=== PATIENT | male | born 1980 | race Caucasian/White ===

== ENCOUNTER 2019-11-20 20:11 | Emergency (ER) | payer OTHER ==
[~2019-11-20] VITALS: Ht 180.3 cm; Wt 68.9 kg
[2019-11-20] MEDS ORDERED: ATIVAN ONE (20:12)
[2019-11-20] MEDS ORDERED: SUBLIMAZE ONE (20:15)
[2019-11-20 20:18] VITALS: BP 149/92
[2019-11-20] MEDS ORDERED: SUBLIMAZE IV STA (20:24)
[2019-11-20] MEDS ORDERED: NS 1000ML 1,000 ML IV STA (20:24)
[2019-11-20] MEDS ORDERED: ATIVAN IV STA (20:24)
--- NOTE | 2019-11-20 20:28 | ER.PDOC ---
General Chief Complaint: General Complaint Stated Complaint: DIABETIC Time seen by MD: 08:20 Source: patient, EMS Exam Limitations: intoxication History of Present Illness Initial Comments Patient c/o altered MS and epigastric pain. His is a known insulin dependent diabetic and has not been taking his insulin. He also has a history of pancreatitis. Timing/Duration: 1/2 hour Severity/Quality: moderate, severe, sharpness, stabbing (epigastric pain) Radiation: no radiation Associated Symptoms: denies symptoms Exacerbated by: food Relieved By: nothing Allergies: Coded Allergies: No Known Allergies (Unverified , 11/20/19) Vital Signs First Vital Signs Date Time Temp Pulse Resp B/P (MAP) Pulse Ox O2 Delivery O2 Flow Rate FiO2 11/20/19 20:18 98.5 129 20 149/92 (111) 95 Room Air Last Vital Signs Date Time Temp Pulse Resp B/P (MAP) Pulse Ox O2 Delivery O2 Flow Rate FiO2 11/20/19 20:18 98.5 129 20 95 11/20/19 20:18 149/92 (111) Room Air Past Medical History Medical History: asthma, diabetes, hypertension, other (pancreatitis) Surgical History: no surgical history Family History Significant Family History: no pertinent family hx Social History Smoking: cigarettes Alcohol Use: heavy Drug Use: none Constitutional: no symptoms reported EENTM: no symptoms reported Respiratory: no symptoms reported Cardiovascular: no symptoms reported Gastrointestinal: see HPI, abdominal pain (epigastric) Musculoskeletal: no symptoms reported Skin: no symptoms reported Psychiatric/Neurological: other (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 mental status (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)) Endocrine: see HPI (has not been taking his insulin) Physical Exam General Appearance: No Apparent Distress HEENT: PERRL/EOMI Neck: Non-Tender Respiratory: chest non-tender, lungs clear, normal breath sounds, no respiratory distress, no accessory muscle use Cardiovascular: Regular Rate, Rhythm Gastrointestinal: No Pulsatile Mass, Hypoactive bowel sounds, Soft, Tenderness (epigastric TTP without rebound) Back: Normal Inspection, No CVA Tenderness, No Vertebral Tenderness Extremities: Normal Range of Motion, Non-Tender, Normal Inspection, No Pedal Edema, No Calf Tenderness Neurologic/Psychiatric: No Motor/Sensory Deficits, Alert, Normal Mood/Affect, Oriented x 3 Skin: Normal Color, Warm/Dry Results/Orders Results/Orders Orders - NITO SANCHEZ DO Cbc With Auto Diff (11/20/19:24) Comprehensive Metabolic Panel (11/20/19:24) Amylase (11/20/19:24) Lipase (11/20/19:24) Helicobacter Pylori (11/20/19:24) PT (11/20/19:24) Partial Thromboplastin Time. (11/20/19 20:24) Urinalysis (11/20/19:24) Saline Lock (11/20/19:24) Blood Glucose Assessment (11/20/19:24) Acetone,Serum (Ml) (11/20/19 20:24) Venous Blood Gas (11/20/19:24) 0.9 % Sodium Chloride (Ns 1000ml) (11/20/19:24) Fentanyl Citrate/Pf (Sublimaze) (11/20/19:24) Lorazepam (Ativan) (11/20/19 20:24) Alcohol(Ml) (11/20/19:24) Drug Scrn Med W Confirmation (11/20/19:24) Ammonia (11/20/19 20:28) Ct Head Wo Contrast (11/20/19 20:29) Bedside Glucose (11/20/19 20:25) Morphine Sulfate (Morphine Sulfate) (11/20/19 20:58) Morphine Sulfate (Morphine Sulfate) (11/20/19 20:58) Insulin Regular, Human (Humulin R) (11/20/19 21:34) Insulin Regular, Human (Humulin R) (11/20/19 21:34) 0.9 % Sodium Chloride (Ns 1000ml) (11/20/19 21:35) Insulin Regular, Human (Humulin R) (11/20/19 21:40) Vital Signs Date Time Temp Pulse Resp B/P (MAP) Pulse Ox O2 Delivery O2 Flow Rate FiO2 11/20/19 20:18 98.5 129 20 95 11/20/19 20:18 98.5 129 20 11/20/19 20:18 98.5 129 20 149/92 (111) 95 Room Air Administered Medications Medications (Trade) Dose Ordered Sig/Emily Route PRN Reason Start Time Stop Time Status Last Admin Dose Admin Fentanyl Citrate (Sublimaze) 100 mcg STAT STAT IV 11/20/19 20:24 11/20/19 20:28 DC 11/20/19 20:40 100 MCG Insulin Human Regular (Humulin R) 5 unit STAT STAT IV 11/20/19 21:34 11/20/19 21:36 DC 11/20/19 21:47 5 UNIT Insulin Human Regular (Humulin R) 10 unit STAT STAT SQ 11/20/19 21:34 11/20/19 21:36 DC 11/20/19 21:47 10 UNIT Lorazepam (Ativan) 1 mg STAT STAT IV 11/20/19 20:24 11/20/19 20:28 DC 11/20/19 20:39 1 MG Morphine Sulfate (Morphine Sulfate) 4 mg STAT STAT IV 11/20/19 20:58 11/20/19 20:59 DC 11/20/19 21:01 4 MG Sodium Chloride 1,000 ml @ 1,200 mls/hr Q50M STAT IV 11/20/19 20:24 11/20/19 21:13 DC 11/20/19 21:41 1,200 MLS/HR Laboratory Tests Test 11/20/19 20:24 11/20/19 20:25 11/20/19 20:43 O2 Saturation 97.7 (70-75) H Venous Blood pH 7.420 (7.32-7.43) Venous Blood pCO2 at Patient Temp 24.4 MMHG (41-51) L POC Venous pO2 107.7 MMHG (30-50) H Venous Blood Base Excess -6.4 Venous Blood Temperature 37.0 Carboxyhemoglobin 13.8 % (0.0-3.9) *H Methemoglobin 0.1 % (0.00-5.0) Total Carbon Dioxide 16.5 mmol/L (23-27) L Bicarbonate 15.8 mmol/L (24-28) L POC Glucose 357 (70 - 110) H White Blood Count 8.4 10^3/uL (4.5-11.0) Red Blood Count 4.21 10^6/uL (4.50-5.90) L Hemoglobin 14.1 g/dL (13.9-16.3) Hematocrit 40.3 % (37.0-53.0) Mean Corpuscular Volume 95.7 fL (78-100) Mean Corpuscular Hemoglobin 33.5 pg (26-34) Mean Corpuscular Hemoglobin Concent 35.0 g/dL (33-36.5) Red Cell Distribution Width 14.5 % (11.5-14.5) Platelet Count 201 10^3/uL (150-400) Mean Platelet Volume 9.2 fL (7.8-11.0) Neutrophils (%) (Auto) 46.5 % (41.0-85.0) Lymphocytes (%) (Auto) 41.5 % (24.0-44.0) Monocytes (%) (Auto) 11.0 % (5.0-12.0) Neutrophils # (Auto) 3.9 10^3/uL (1.8-7.7) Lymphocytes # (Auto) 3.47 10^3/uL1 (1.0-4.8) Monocytes # (Auto) 0.9 10^3/uL (0.3-0.8) H Absolute Immature Granulocyte (auto 0.02 10^3 u/L (0-2) Absolute Eosinophils (auto) 0.1 10^3/uL (0.0-0.2) Immature Granulocytes % 0.20 % (0.00-0.50) Eosinophils % 0.6 % (0.0-5.0) Basophils % 0.2 % (0.0-0.2) Basophils # 0.0 10^3/uL (0.0-0.1) Prothrombin Time 9.7 SEC (9.3-11.3) Prothrombin Time INR (Non-Therap) 1.0 Activated Partial Thromboplast Time 22.7 SEC (24.67-30.72) Urine Collection Type CCMS Urine Color YELLOW (YELLOW) Urine Appearance CLEAR (CLEAR) Urine Bilirubin NEGATIVE MG/DL (NEGATIVE) Urine Ketones NEGATIVE (NEGATIVE) Urine Specific [place] <=1.005 (1.005-1.035) Urine pH 6.0 (5.0-6.0) Urine Protein NEGATIVE (NEGATIVE) Urine Urobilinogen NORMAL (NEGATIVE) Urine Nitrate NEGATIVE (NEGATAIVE) Urine Leukocyte Esterase NEGATIVE (NEGATIVE) Urine Blood NEGATIVE (NEGATIVE) Urine Glucose 500 (NEGATIVE) H Sodium Level 137 mmol/L (132-145) Potassium Level 3.8 mmol/L (3.6-5.2) Chloride Level 101.0 mmol/L (96-109) Carbon Dioxide Level 18.5 mmol/L (20.0-32) L Anion Gap 21.3 Blood Urea Nitrogen 3 mg/dL (7-18) L Creatinine 1.00 mg/dL (0.59-1.40) Estimated GFR () 101.2 (>/=60) Est GFR (CKD-EPI)(Non-Afr [place]) 83.6 (>/=60) BUN/Creatinine Ratio 3.0 Glucose Level 365 mg/dL (70-110) H Calcium Level 8.7 mg/dL (8.4-10.5) Total Bilirubin 0.2 mg/dL (0.2-1.0) Aspartate Amino Transferase (AST) 23 U/L (0-35) Alanine Aminotransferase (ALT) 30 U/L (12-78) Alkaline Phosphatase 136 U/L (50-136) Ammonia 17 umol/L (11-35) Total Protein 7.9 g/dL (6.4-8.2) Albumin 3.9 g/dL (3.4-5.0) Globulin 4.0 Amylase Level 31 U/L (25-115) Lipase 33 U/L (114-286) L Urine Opiates Screen NEGATIVE (c/o300ng/mL) Urine Methadone Screen NEGATIVE (c/o300ng/mL) Urine Barbiturates Screen NEGATIVE (c/o200ng/mL) Urine Phencyclidine Screen NEGATIVE (c/o 25ng/mL) Ur Amphetamine/Methamphetamine NEGATIVE (oq8305rz/mL) Urine MDMA Screen (Ecstasy) NEGATIVE (c/o300ng/mL) Urine Benzodiazepines Screen NEGATIVE (c/o200ng/mL) Urine Cocaine Metabolite Screen NEGATIVE (c/o300ng/mL) Ur Tetrahydrocannabinol (THC) Scrn NEGATIVE (c/o 50ng/mL) Serum Alcohol 292 mg/dL (0-50) H Acetone, Semi-Quantitative NEGATIVE Helicobacter pylori Screen POSITIVE (NEGATIVE) Progress Progress no evidence of DKA or pancreatitis; ETOH is 292 explaining patient's altered MS; CT head normal EKG/XRAY/CT/US CT Comments: normal Departure Time of Disposition: 22:10 Disposition: 01 HOME, SELF-CARE Impression: Primary Impression: H. pylori infection Additional Impressions: Uncontrolled diabetes mellitus Alcohol intoxication Condition: Improved Patient Instructions: 2400 Calorie Diet for Diabetes Meal Planning, Alcoholic Gastritis-Brief, Diabetes Meal Planning Guide, Diabetes and Standards of Medical Care Referrals: PCP,UNKNOWN (PCP) PRIMARY CARE PROVIDER Additional Instructions: Take antibiotics as prescribed until all gone. Do not drink alcohol--it will aggravate pancreatitis and gastritis. Tylenol per package directions for pain. Establish care with a PCP to manage diabetes. Duration or Time Spent with Pa: 15 Problem Qualifiers Additional Impressions: Uncontrolled diabetes mellitus Diabetes mellitus type: type 1 Glycemic state: with hyperglycemia Qualified Codes: E10.65 - Type 1 diabetes mellitus with hyperglycemia Alcohol intoxication Complication of substance-induced condition: uncomplicated Qualified Codes: F10.920 - Alcohol use, unspecified with intoxication, uncomplicated NITO SANCHEZ DO Nov 20, 2019 20:28
--- NOTE | 2019-11-20 20:39 | NUR ---
CT PT TO CT WITH [facility] VIA STRETCHER AT THIS TIME.
--- NOTE | 2019-11-20 20:47 | NUR ---
ROOM PT BACK TO ROOM FROM CT AT THIS TIME.
[2019-11-20 20:48] LABS: BASOPHIL % 0.2 % (0.0-0.2); EOSINOPHIL # 0.1 10^3/uL (0.0-0.2); EOSINOPHIL % 0.6 % (0.0-5.0); LYMPHOCYTES # 3.47 10^3/uL1 (1.0-4.8); LYMPHOCYTES % 41.5 % (24.0-44.0); MEAN CORP HGB 33.5 pg (26-34); MONOCYTES # 0.9 10^3/uL (0.3-0.8); NEUTROPHIL # 3.9 10^3/uL (1.8-7.7); NEUTROPHILS % 46.5 % (41.0-85.0); PLATELET COUNT 201 10^3/uL (150-400); RED CELL DISTRIBUTION WIDTH 14.5 % (11.5-14.5)
--- NOTE | 2019-11-20 20:52 | DIREP ---
PROCEDURE:CT HEAD OR BRAIN W/O CONTRAST COMPARISON:[facility], CT, CT HEAD BRAIN W/O CONTRAST, 07/27/2019, 08:42 PM. INDICATIONS:altered mental status TECHNIQUE:CT images were created without intravenous contrast. FINDINGS: VENTRICLES:The ventricles are normal in size and configuration. CEREBRUM:Normal cerebral morphology with appropriate adler white matter differentiation. CEREBELLUM:Negative. BRAINSTEM:Negative. BASAL CISTERNS:Negative. HEMORRHAGE:No MASS LESION:No ACUTE INFARCT:No SKULL:Normal. SINUSES:Normal. OTHER:None CONCLUSION:Normal examination. Dictated by: Martín Poole M.D. on 11/20/2019 at 08:50 PM
[2019-11-20] MEDS ORDERED: MORPHINE SULFATE IV STA (20:58)
[2019-11-20] MEDS ORDERED: MORPHINE SULFATE ONE (20:58)
[2019-11-20 21:08] LABS: CALCIUM 8.7 mg/dL (8.4-10.5); CARBON DIOXIDE 18.5 mmol/L (20.0-32)
[2019-11-20 21:09] LABS: APPEARANCE,URINE CLEAR (CLEAR); BILIRUBIN,URINE NEGATIVE (NEGATIVE); UA COLOR YELLOW (YELLOW)
[2019-11-20 21:10] LABS: UROBILINOGEN,URINE NORMAL (NEGATIVE)
--- NOTE | 2019-11-20 21:21 | NUR ---
Critical alcohol level of [address] Ledesma.
[2019-11-20] MEDS ORDERED: HUMULIN R SQ STA (21:34)
[2019-11-20] MEDS ORDERED: HUMULIN R IV STA (21:34)
[2019-11-20] MEDS ORDERED: NS 1000ML 1,000 ML ONE (21:35)
[2019-11-20] MEDS ORDERED: HUMULIN R ONE (21:40)
[2019-11-20 22:31] VITALS: BP 103/56
== END 2019-11-20 23:27 | disposition home or self-care (01) ==
LOC: EDBD 20:11 → ER 20:11
DX: E11.65 Type 2 diabetes mellitus with hyperglycemia (principal); F10.129 Alcohol abuse with intoxication, unspecified; B96.81 Helicobacter pylori [H. pylori] as the cause of diseases classified elsewhere; I10 Essential (primary) hypertension; J45.909 Unspecified asthma, uncomplicated; R41.82 Altered mental status, unspecified; F17.210 Nicotine dependence, cigarettes, uncomplicated; Z79.4 Long term (current) use of insulin; Z79.899 Other long term (current) drug therapy; Y90.8 Blood alcohol level of 240 mg/100 ml or more
CPT/HCPCS: 36415; 70450; 80053; 80307; 80320; 81002; 82010; 82140; 82150; 82803; 82948; 83690; 85025; 85610; 85730; 86677; 96361; 96372; 96374; 96375; 99284; J1815; J2060; J2270; J3010; J7030

== ENCOUNTER 2019-11-23 22:20 | Emergency (ER) | payer OTHER ==
[~2019-11-23] VITALS: Ht 180.3 cm; Wt 68.0 kg
[2019-11-23 22:22] VITALS: BP 143/99
--- NOTE | 2019-11-23 22:33 | ER.PDOC ---
General Chief Complaint: Requesting Medical Care Stated Complaint: ABD PAIN Time seen by MD: 22:18 Source: patient Exam Limitations: no limitations History of Present Illness Initial Comments pain in upper abdomen starting at 630 am today, has hx of pancreatitis and h pylori, he was seen here several days ago for similar and was dx with h pylori and given rx which he did not fill. no vomiting or diarrhea patient is diabetic and did not take insulin for 3 days but took today, patient drinks one half gallon of hard liquor per day per patient. Timing/Duration: other Severity/Quality: moderate Radiation: epigastric Associated Symptoms: denies symptoms Allergies: Coded Allergies: No Known Allergies (Unverified , 11/20/19) Vital Signs First Vital Signs Date Time Temp Pulse Resp B/P (MAP) Pulse Ox O2 Delivery O2 Flow Rate FiO2 11/23/19 22:22 98.3 113 16 143/99 (114) 93 Room Air Last Vital Signs Date Time Temp Pulse Resp B/P (MAP) Pulse Ox O2 Delivery O2 Flow Rate FiO2 11/23/19 22:22 98.3 113 16 93 11/23/19 22:22 143/99 (114) Room Air Past Medical History Medical History: asthma, diabetes, hypertension, other Surgical History: no surgical history Social History Drug Use: none Constitutional: denies chills, denies fever EENTM: denies eye pain Respiratory: denies cough Cardiovascular: denies chest pain, denies palpitations, denies syncope Gastrointestinal: abdominal pain; denies diarrhea Skin: denies rash Psychiatric/Neurological: denies headache Endocrine: denies increased urine Hematologic/Lymphatic: denies blood clots Physical Exam General Appearance: No Apparent Distress, WD/WN HEENT: PERRL/EOMI, Normal ENT Inspection Neck: Non-Tender Respiratory: chest non-tender, lungs clear Cardiovascular: Regular Rate, Rhythm Gastrointestinal: Soft, Tenderness Back: Normal Inspection Extremities: Normal Range of Motion, Non-Tender Neurologic/Psychiatric: letter of credit clerk II-XII NML as Tested, No Motor/Sensory Deficits, Alert, Normal Mood/Affect Skin: Normal Color Comments patient does not appear intoxicated at time of visit, no slurring of speech. Results/Orders Results/Orders Orders - DOM BERRIOS MD Cbc With Auto Diff (11/23/19 22:28) Comprehensive Metabolic Panel (11/23/19 22:28) Amylase (11/23/19 22:28) Lipase (11/23/19 22:28) Helicobacter Pylori (11/23/19 22:28) PT (11/23/19 22:28) Ct Abd/Pel With Iv Contrast (11/23/19 22:28) Partial Thromboplastin Time. (11/23/19 22:28) Urinalysis (11/23/19 22:28) Saline Lock (11/23/19 22:) Ekg-Routine (11/23/19 22:29) Troponin I (11/23/19:) Vital Signs Date Time Temp Pulse Resp B/P (MAP) Pulse Ox O2 Delivery O2 Flow Rate FiO2 11/23/19 22: 98.3 113 16 93 11/23/19: 98.3 113 16 11/23/19 22: 98.3 113 16 143/99 (114) 93 Room Air Laboratory Tests Test 11/23/19 22:55 11/23/19 23:00 White Blood Count 11.0 10^3/uL (4.5-11.0) Red Blood Count 4.59 10^6/uL (4.50-5.90) Hemoglobin 15.2 g/dL (13.9-16.3) Hematocrit 43.3 % (37.0-53.0) Mean Corpuscular Volume 94.3 fL (78-100) Mean Corpuscular Hemoglobin 33.1 pg (26-34) Mean Corpuscular Hemoglobin Concent 35.1 g/dL (33-36.5) Red Cell Distribution Width 14.5 % (11.5-14.5) Platelet Count 177 10^3/uL (150-400) Mean Platelet Volume 9.0 fL (7.8-11.0) Neutrophils (%) (Auto) 50.6 % (41.0-85.0) Lymphocytes (%) (Auto) 38.8 % (24.0-44.0) Monocytes (%) (Auto) 9.1 % (5.0-12.0) Neutrophils # (Auto) 5.6 10^3/uL (1.8-7.7) Lymphocytes # (Auto) 4.28 10^3/uL1 (1.0-4.8) Monocytes # (Auto) 1.0 10^3/uL (0.3-0.8) H Absolute Immature Granulocyte (auto 0.05 10^3 u/L (0-2) Absolute Eosinophils (auto) 0.1 10^3/uL (0.0-0.2) Immature Granulocytes % 0.50 % (0.00-0.50) Eosinophils % 0.8 % (0.0-5.0) Basophils % 0.2 % (0.0-0.2) Basophils # 0.0 10^3/uL (0.0-0.1) Sodium Level 135 mmol/L (132-145) Potassium Level 3.5 mmol/L (3.6-5.2) L Chloride Level 97.0 mmol/L (96-109) Carbon Dioxide Level 20.2 mmol/L (20.0-32) Anion Gap 21.3 Blood Urea Nitrogen 4 mg/dL (7-18) L Creatinine 0.84 mg/dL (0.59-1.40) Estimated GFR () 123.7 (>/=60) Est GFR (CKD-EPI)(Non-Afr [place]an) 102.3 (>/=60) BUN/Creatinine Ratio 4.0 Glucose Level 190 mg/dL (70-110) H Calcium Level 8.9 mg/dL (8.4-10.5) Total Bilirubin 0.2 mg/dL (0.2-1.0) Aspartate Amino Transferase (AST) 25 U/L (0-35) Alanine Aminotransferase (ALT) 25 U/L (12-78) Alkaline Phosphatase 116 U/L (50-136) Troponin I < 0.02 ng/mL (0.00-0.05) Total Protein 8.3 g/dL (6.4-8.2) H Albumin 3.8 g/dL (3.4-5.0) Globulin 4.5 Amylase Level 35 U/L (25-115) Lipase 34 U/L (114-286) L Helicobacter pylori Screen POSITIVE (NEGATIVE) Urine Collection Type VOID Urine Color YELLOW (YELLOW) Urine Appearance CLEAR (CLEAR) Urine Bilirubin NEGATIVE MG/DL (NEGATIVE) Urine Ketones NEGATIVE (NEGATIVE) Urine Specific [place] <1.005 (1.005-1.035) Urine pH 6.0 (5.0-6.0) Urine Protein NEGATIVE (NEGATIVE) Urine Urobilinogen NORMAL (NEGATIVE) Urine Nitrate NEGATIVE (NEGATAIVE) Urine Leukocyte Esterase NEGATIVE (NEGATIVE) Urine Blood NEGATIVE (NEGATIVE) Urine Glucose 100 (NEGATIVE) H Progress Progress patient has sober adult in room to take him home. Departure Time of Disposition: 23:33 Disposition: 01 HOME, SELF-CARE Impression: Primary Impression: Abdominal pain Additional Impressions: Hyperglycemia H. pylori infection Alcohol abuse Condition: Stable Patient Instructions: Abdominal Pain, Helicobacter Pylori Antibodies Test, Hyperglycemia Referrals: PCP,UNKNOWN (PCP) PRIMARY CARE PROVIDER LI DELUNA MD Additional Instructions: return for any worsening symptoms, call detox facility of your choice in am. Duration or Time Spent with Pa: 15 Problem Qualifiers DOM BERRIOS MD Nov 23, 2019 22:33
--- NOTE | 2019-11-23 22:34 | NUR ---
EKG RT IN ROOM FOR EKG
--- NOTE | 2019-11-23 22:38 | PCM.EKG ---
[facility] Test Date: 2019-11-23 Test Time: 22:23:27 Pat Name: VERONICA WHITE Department: Room: Gender: M [employer]: [place] : 1980 Requested By: HUBERT PADILLA Order Number: [id number] Reading MD: Hubert Padilla Measurements Intervals [place] Rate: 108 P: 57 AR: 129 QRS: 70 QRSD: 93 T: -17 QT: 337 QTc: 452 Interpretive Statements Sinus tachycardia No previous ECG available for comparison Electronically Signed On 11-23-2019 22:39:45 CDT by Hubert Padilla Please click the below link to view image of tracing.
[2019-11-23 22:55] LABS: BASOPHIL % 0.2 % (0.0-0.2); EOSINOPHIL # 0.1 10^3/uL (0.0-0.2); EOSINOPHIL % 0.8 % (0.0-5.0); LYMPHOCYTES # 4.28 10^3/uL1 (1.0-4.8); LYMPHOCYTES % 38.8 % (24.0-44.0); MEAN CORP HGB 33.1 pg (26-34); MONOCYTES % 9.1 % (5.0-12.0); NEUTROPHIL # 5.6 10^3/uL (1.8-7.7); NEUTROPHILS % 50.6 % (41.0-85.0); PLATELET COUNT 177 10^3/uL (150-400); RED CELL DISTRIBUTION WIDTH 14.5 % (11.5-14.5)
[2019-11-23 23:10] LABS: CALCIUM 8.9 mg/dL (8.4-10.5); CARBON DIOXIDE 20.2 mmol/L (20.0-32)
--- NOTE | 2019-11-23 23:16 | NUR ---
BACK FROM CT PATIENT BACK FROM CT, GF AT BEDSIDE. NO NEEDS VOICED BY PATIENT OR GF
[2019-11-23 23:18] LABS: APPEARANCE,URINE CLEAR (CLEAR); UA COLOR YELLOW (YELLOW)
[2019-11-23 23:19] LABS: BILIRUBIN,URINE NEGATIVE (NEGATIVE)
[2019-11-23 23:20] LABS: UROBILINOGEN,URINE NORMAL (NEGATIVE)
--- NOTE | 2019-11-23 23:30 | DIREP ---
PROCEDURE:CT ABDOMEN/PELVIS W/ CONTRAST COMPARISON:[facility], CT, CT ABD/PELVIS W/O, 07/01/2019, 08:28 AM. [facility], CT, CT ABD/PELVIS W/O, 07/27/2019, 08:48 PM. INDICATIONS:upper abd pain with hx pancreatitis TECHNIQUE:Axial images were created through the abdomen and pelvis with non-ionic intravenous contrast material. No oral contrast was administered. Sagittal and coronal reconstructions were performed from source images. FINDINGS: LUNG BASES:Normal. No visible pulmonary or pleural disease. LIVER:Diffusely diminished hepatic attenuation consistent with hepatic steatosis. BILIARY:Normal. No visible dilatation or calcification. PANCREAS:Peripherally calcified fluid collection in keeping with chronic pseudocyst, similar to previous examination. No evidence of pancreatic necrosis. Stranding to indicate acute pancreatitis is not seen SPLEEN:Normal. No enlargement or focal lesion. ADRENALS:Normal. No mass or enlargement. URINARY TRACT:Normal. No focal lesions or hydronephrosis. AORTA/VASCULAR:Normal. No aneurysm. RETROPERITONEUM:Normal. No mass or adenopathy. BOWEL/MESENTERY:The appendix is visualized and appears normal. There is no intestinal obstruction, free fluid, free air or mesenteric inflammatory changes. ABDOMINAL WALL:Normal. No mass or hernia. PELVIC ORGANS:Normal. No visible mass. Pelvic organs appropriate for patient age. BONES:Normal for age. No bony lesion or acute fracture. OTHER:Negative. CONCLUSION:Stable chronic pancreatic pseudocyst. No acute superimposed process. Dictated by: Chris Elliott MD on 11/23/2019 at 11:25 PM
--- NOTE | 2019-11-23 23:40 | NUR ---
IV DC'D TIP INTACT, NO BLEEDING
[2019-11-23 23:45] VITALS: BP 127/81
== END 2019-11-23 23:45 | disposition home or self-care (01) ==
LOC: ER 22:20 → EDBD 22:20 → ER 23:45
DX: E11.65 Type 2 diabetes mellitus with hyperglycemia (principal); B96.81 Helicobacter pylori [H. pylori] as the cause of diseases classified elsewhere; F10.10 Alcohol abuse, uncomplicated; I10 Essential (primary) hypertension; J45.909 Unspecified asthma, uncomplicated
CPT/HCPCS: 36415; 74177; 80053; 81002; 82150; 83690; 84484; 85025; 85610; 85730; 86677; 93005; 99285; Q9965

== ENCOUNTER 2020-09-29 17:40 | Emergency (ER) | payer OTHER ==
[2020-09-29 17:40] VITALS: BP 157/89
[2020-09-29] MEDS ORDERED: TORADOL IV STA (17:51)
[2020-09-29] MEDS ORDERED: NS 1000ML 1,000 ML IV ONE (18:00)
[2020-09-29] MEDS ORDERED: TORADOL ONE (18:08)
[2020-09-29] MEDS ORDERED: ZOFRAN ONE (18:08)
--- NOTE | 2020-09-29 18:13 | ER.PDOC ---
General Chief Complaint: Requesting Medical Care Stated Complaint: ABDOMINAL PAIN Time seen by MD: 18:00 Source: patient Exam Limitations: no limitations History of Present Illness Initial Comments 39-year-old male with history of pancreatitis and alcoholism as well as type 1 diabetes presents to the emergency department with complaint of epigastric pain nausea vomiting and diarrhea since yesterday. He denies any fevers. Patient states he has had close to 2/5 of whiskey today and he also smokes 2 packs/day. Allergies: Coded Allergies: No Known Allergies (Unverified , 11/20/19) Vital Signs First Vital Signs Date Time Temp Pulse Resp B/P (MAP) Pulse Ox O2 Delivery O2 Flow Rate FiO2 09/29/20 17:40 97.8 127 18 95 09/29/20 17:40 157/89 (111) Room Air Last Vital Signs Date Time Temp Pulse Resp B/P (MAP) Pulse Ox O2 Delivery O2 Flow Rate FiO2 09/29/20 17:40 97.8 127 18 157/89 (111) 95 Room Air Past Medical History Medical History: COPD, diabetes, hypertension Surgical History: no surgical history Social History Drug Use: none Constitutional: no symptoms reported Respiratory: shortness of breath Cardiovascular: no symptoms reported Gastrointestinal: abdominal pain, diarrhea, nausea, vomiting Musculoskeletal: no symptoms reported Skin: no symptoms reported Physical Exam General Appearance: Mild Distress HEENT: Normal ENT Inspection Neck: Full Range of Motion, Supple Respiratory: no respiratory distress, no accessory muscle use, wheezing (Scant wheezes) Cardiovascular: Regular Rate, Rhythm, Tachycardia Gastrointestinal: Soft, Guarding, Tenderness Extremities: Normal Range of Motion, Normal Inspection 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 as Tested, Alert, Normal Mood/Affect, Oriented x 3 Skin: Normal Color, Warm/Dry Results/Orders Results/Orders Orders - KRISTIE HENLEY MD Cbc With Auto Diff (09/29/20 17:51) Comprehensive Metabolic Panel (09/29/20 17:51) Lipase (09/29/20 17:51) Helicobacter Pylori (09/29/20 17:51) Urinalysis (09/29/20 17:51) Saline Lock (09/29/20 17:51) Drug Scrn Med W Confirmation (09/29/20 17:51) 0.9 % Sodium Chloride (Ns 1000ml) (09/29/20 18:00) Ondansetron Hcl/Pf (Zofran) (09/29/20 18:00) Ketorolac Tromethamine (Toradol) (09/29/20 17:51) Ondansetron Hcl/Pf (Zofran) (09/29/20 18:08) Ketorolac Tromethamine (Toradol) (09/29/20 18:08) Lactate Dehydrogenase (09/29/20 18:13) Ct Abd/Pel With Iv Contrast (09/29/20 18:48) Xr Chest 1v (09/29/20 18:48) 0.9 % Sodium Chloride (Ns 1000ml) (09/29/20 18:48) Lancets (Accu-Chek) (09/29/20 18:48) Vital Signs Date Time Temp Pulse Resp B/P (MAP) Pulse Ox O2 Delivery O2 Flow Rate FiO2 09/29/20 17:40 97.8 127 18 157/89 (111) 95 Room Air 09/29/20 17:40 97.8 127 18 09/29/20 17:40 97.8 127 18 95 Administered Medications Medications (Trade) Dose Ordered Sig/Emily Route PRN Reason Start Time Stop Time Status Last Admin Dose Admin Ketorolac Tromethamine (Toradol) 15 mg OT STAT IV 09/29/20 17:51 09/29/20 17:55 DC 09/29/20 18:17 15 MG Ondansetron HCl (Zofran) 4 mg Q4H PRN IV NAUSEA / VOMITING 09/29/20 18:00 09/29/20 19:53 DC 09/29/20 18:18 4 MG Sodium Chloride 1,000 ml @ 1,000 mls/hr OT ONCE IV 09/29/20 18:00 09/29/20 18:59 DC 09/29/20 18:18 1,000 MLS/HR Laboratory Tests Test 09/29/20 17:51 09/29/20 18:00 Urine Collection Type UNKNOWN Urine Color YELLOW Urine Appearance CLEAR Urine Bilirubin NEGATIVE (NEGATIVE) Urine Ketones 40 mg/dL (NEGATIVE) H Urine Specific [place] 1.010 (1.005-1.030) Urine pH 5.5 (4.5-8.0) Urine Protein NEGATIVE (NEGATIVE) Urine Urobilinogen 0.2 E.U./dL (0.2) Urine Nitrate NEGATIVE (NEGATIVE) Urine Leukocyte Esterase NEGATIVE (NEGATIVE) Urine Glucose (Auto)(UA) >=1000 (NEGATIVE) H Urine Blood NEGATIVE (NEGATIVE) Urine Opiates Screen NEGATIVE (c/o300ng/mL) Urine Methadone Screen NEGATIVE (c/o300ng/mL) Urine Barbiturates Screen NEGATIVE (c/o200ng/mL) Urine Phencyclidine Screen NEGATIVE (c/o 25ng/mL) Ur Amphetamine/Methamphetamine NEGATIVE (od2112uq/mL) Urine MDMA Screen (Ecstasy) NEGATIVE (c/o300ng/mL) Urine Benzodiazepines Screen NEGATIVE (c/o200ng/mL) Urine Cocaine Metabolite Screen NEGATIVE (c/o300ng/mL) Ur Tetrahydrocannabinol (THC) Scrn NEGATIVE (c/o 50ng/mL) White Blood Count 13.0 10^3/uL (4.5-11.0) H Red Blood Count 5.38 10^6/uL (4.50-5.90) Hemoglobin 16.2 g/dL (13.9-16.3) Hematocrit 47.4 % (37.0-53.0) Mean Corpuscular Volume 88.1 fL (78-100) Mean Corpuscular Hemoglobin 30.1 pg (26-34) Mean Corpuscular Hemoglobin Concent 34.2 g/dL (33-36.5) Red Cell Distribution Width 15.4 % (11.5-14.5) H Platelet Count 277 10^3/uL (150-400) Mean Platelet Volume 9.1 fL (7.8-11.0) Neutrophils (%) (Auto) 61.8 % (41.0-85.0) Lymphocytes (%) (Auto) 33.7 % (24.0-44.0) Monocytes (%) (Auto) 3.5 % (5.0-12.0) L Neutrophils # (Auto) 8.1 10^3/uL (1.8-7.7) H Lymphocytes # (Auto) 4.40 10^3/uL1 (1.0-4.8) Monocytes # (Auto) 0.5 10^3/uL (0.3-0.8) Absolute Immature Granulocyte (auto 0.03 10^3 u/L (0-2) Absolute Eosinophils (auto) 0.1 10^3/uL (0.0-0.2) Immature Granulocytes % 0.20 % (0.00-0.50) Eosinophils % 0.5 % (0.0-5.0) Basophils % 0.3 % (0.0-0.2) H Basophils # 0.0 10^3/uL (0.0-0.1) Sodium Level 135 mmol/L (132-145) Potassium Level 5.3 mmol/L (3.6-5.2) H Chloride Level 98.0 mmol/L (96-109) Carbon Dioxide Level 16.3 mmol/L (20.0-32) L Anion Gap 26.0 Blood Urea Nitrogen 8 mg/dL (7-18) Creatinine 1.02 mg/dL (0.59-1.40) Estimated GFR () 98.4 (>/=60) Est GFR (CKD-EPI)(Non-Afr Bangladeshi) 81.3 (>/=60) BUN/Creatinine Ratio 7.0 Glucose Level 449 mg/dL (70-110) *H Calcium Level 8.7 mg/dL (8.4-10.5) Total Bilirubin 0.4 mg/dL (0.2-1.0) Aspartate Amino Transferase (AST) 34 U/L (0-35) Alanine Aminotransferase (ALT) 31 U/L (12-78) Alkaline Phosphatase 166 U/L (50-136) H Lactate Dehydrogenase 308 U/L (85-227) H Total Protein 9.0 g/dL (6.4-8.2) H Albumin 3.8 g/dL (3.4-5.0) Globulin 5.2 Albumin/Globulin Ratio 0.730 Lipase 19 U/L (114-286) L Helicobacter pylori Screen NEGATIVE (NEGATIVE) Progress Progress 1932: Patient ripped out his IV and eloped from the emergency department. ER DEPART Departure Time of Disposition: 19:25 Disposition: 07 LEFT AWOL/ELOPED Impression: Primary Impression: Abdominal pain Additional Impression: Alcoholism Condition: Eloped Referrals: PCP,UNKNOWN (PCP) PRIMARY CARE PROVIDER Duration or Time Spent with Pa: 15 Problem Qualifiers KRISTIE HENLEY MD Sep 29, 2020 18:13
[2020-09-29 18:16] LABS: BASOPHIL % 0.3 % (0.0-0.2); EOSINOPHIL # 0.1 10^3/uL (0.0-0.2); EOSINOPHIL % 0.5 % (0.0-5.0); LYMPHOCYTES % 33.7 % (24.0-44.0); MEAN CORP HGB 30.1 pg (26-34); MONOCYTES # 0.5 10^3/uL (0.3-0.8); MONOCYTES % 3.5 % (5.0-12.0); NEUTROPHIL # 8.1 10^3/uL (1.8-7.7); NEUTROPHILS % 61.8 % (41.0-85.0); PLATELET COUNT 277 10^3/uL (150-400); RED CELL DISTRIBUTION WIDTH 15.4 % (11.5-14.5)
[2020-09-29] MEDS: ZOFRAN IV PRN ×2 (18:18→18:31)
[2020-09-29 18:20] LABS: CALCIUM 8.7 mg/dL (8.4-10.5); CARBON DIOXIDE 16.3 mmol/L (20.0-32)
[2020-09-29 18:24] LABS: BILIRUBIN,URINE NEGATIVE (NEGATIVE); UA COLOR YELLOW; UROBILINOGEN,URINE 0.2 E.U./dL (0.2)
[2020-09-29] MEDS ORDERED: ACCU-CHEK MC STA (18:48)
[2020-09-29] MEDS ORDERED: NS 1000ML 1,000 ML IV STA (18:48)
--- NOTE | 2020-09-29 19:31 | DIREP ---
PROCEDURE:CHEST 1 VIEW COMPARISON:[facility], CR, XRAY CHEST 2 VWS, 09/17/2015, 06:44 PM. [facility], CR, XRAY CHEST SINGLE VW, 07/01/2019, 11:15 AM. INDICATIONS:sob FINDINGS: LUNGS/PLEURA:No significant pulmonary parenchymal abnormalities. No effusions. VASCULATURE:Normal. Unremarkable pulmonary vasculature. CARDIAC:Normal. No cardiac silhouette abnormality or cardiomegaly. MEDIASTINUM:Normal. No visible mass or adenopathy. BONES:Normal. No fracture or visible bony lesion. OTHER:With contrast within the collecting systems CONCLUSION:No acute process. There is no significant change as compared with the previous examination. Dictated by: Chris Elliott MD on 09/29/2020 at 07:29 PM
--- NOTE | 2020-09-29 19:38 | DIREP ---
PROCEDURE:CT ABDOMEN/PELVIS W/ CONTRAST COMPARISON:[facility], CR, XRAY CHEST SINGLE VW, 09/29/2020, 07:09 PM. [facility], CT, CT ABD/PELVIS W/ CONTRAST, 11/23/2019, 11:04 PM. INDICATIONS:abd pain TECHNIQUE:Axial images were created through the abdomen and pelvis with non-ionic intravenous contrast material. No oral contrast was administered. Sagittal and coronal reconstructions were performed from source images. FINDINGS: LUNG BASES:Regions of presumed atelectasis in the anteromedial right middle lobe. Peripheral 1 cm nodule right lower lobe. Nonemergent noncontrast CT chest recommended LIVER:Diffusely diminished hepatic attenuation consistent with hepatic steatosis. BILIARY:Normal. No visible dilatation or calcification. PANCREAS:Peripherally calcified fluid collection in keeping with chronic pseudocyst, similar to previous examination. No evidence of pancreatic necrosis. Stranding to indicate acute pancreatitis is not seen SPLEEN:Normal. No enlargement or focal lesion. ADRENALS:Normal. No mass or enlargement. URINARY TRACT:Normal. No focal lesions or hydronephrosis. AORTA/VASCULAR:Normal. No aneurysm. RETROPERITONEUM:Normal. No mass or adenopathy. BOWEL/MESENTERY:The appendix is visualized and appears normal. There is no intestinal obstruction, free fluid, free air or mesenteric inflammatory changes. ABDOMINAL WALL:Normal. No mass or hernia. PELVIC ORGANS:Normal. No visible mass. Pelvic organs appropriate for patient age. BONES:Normal for age. No bony lesion or acute fracture. OTHER:Negative. CONCLUSION:Sequela of previous pancreatitis. No acute findings, no significant interval change. Dictated by: Chris Elliott MD on 09/29/2020 at 07:31 PM
== END 2020-09-29 19:30 | disposition left against medical advice (07) ==
LOC: EDBD 17:40 → ER 17:40
DX: F10.20 Alcohol dependence, uncomplicated (principal); E10.9 Type 1 diabetes mellitus without complications; F17.210 Nicotine dependence, cigarettes, uncomplicated; I10 Essential (primary) hypertension; J44.9 Chronic obstructive pulmonary disease, unspecified; Z79.1 Long term (current) use of non-steroidal anti-inflammatories (NSAID); Z79.4 Long term (current) use of insulin; Z79.899 Other long term (current) drug therapy; Z87.19 Personal history of other diseases of the digestive system; Y90.9 Presence of alcohol in blood, level not specified
CPT/HCPCS: 36415; 71045; 74177; 80053; 80307; 81003; 83615; 83690; 85025; 86677; 96361; 96374; 96375; 99285; J1885; J2405; Q9965

== ENCOUNTER 2022-07-25 18:53 | Emergency (ER) | payer SELFPAY ==
[~2022-07-25] VITALS: Ht 180.3 cm; Wt 63.5 kg
--- NOTE | 2022-07-25 18:58 | NUR ---
ARRIVAL PT TO ROOM 3 VIA EMS GURNEY WITH C/O EPIGASTRIC PAIN RADIATING TO BACK, HYPERGLYCEMIA AND INTOXICATION. EMS REPORTS BLOOD GLUCOSE WAS 382 ON ARRIVAL. PT HAS 20G IV PLACED PRIOR TO ARRIVAL TO LEFT WRIST WITH NS INFUSING. PT WAS GIVEN TORADOL 30MG. VS AND ASSESSMENT COMPLETE CHARTED. HISTORY AND STATUS OBTAINED.
[2022-07-25] MEDS ORDERED: TORADOL IV STA (19:09)
[2022-07-25 19:11] VITALS: BP_SYST 142; BP_SYST 42; BP_DIAS 89
--- NOTE | 2022-07-25 19:18 | PCM.EKG ---
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
--- NOTE | 2022-07-25 19:18 | NUR ---
BEHAVIORS PATIENT REPORTS TO PHYLEBOTOMIST AT BEDSIDE IF THE PHYSICIAN ISN'T GOING TO GIVE HIM ANY PAIN MEDS HE'S JUST GOING TO LEAVE. 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 EDP NOTIFIED.
[2022-07-25 19:32] LABS: BASOPHIL % 0.5 % (0.0-0.2); EOSINOPHIL # 0.3 10^3/uL (0.0-0.2); EOSINOPHIL % 2.9 % (0.0-5.0); LYMPHOCYTES # 3.85 10^3/uL1 (1.0-4.8); LYMPHOCYTES % 43.4 % (24.0-44.0); MEAN CORP HGB 31.1 pg (26-34); MONOCYTES # 0.6 10^3/uL (0.3-0.8); MONOCYTES % 6.2 % (5.0-12.0); NEUTROPHIL # 4.2 10^3/uL (1.8-7.7); NEUTROPHILS % 46.8 % (41.0-85.0); PLATELET COUNT 263 10^3/uL (150-400); RED CELL DISTRIBUTION WIDTH 13.8 % (11.5-14.5)
[2022-07-25 19:46] LABS: CARBON DIOXIDE 17.1 mmol/L (20.0-32)
--- NOTE | 2022-07-25 20:29 | ER.PDOC ---
General Chief Complaint: Abdomen Pain Stated Complaint: ETOH Time seen by MD: 19:21 Source: patient Exam Limitations: no limitations History of Present Illness Initial Comments Abdominal pain this evening after drinking much alcohol. No nausea or vomiting. No diarrhea. No fever or chills. He has a history of pancreatitis. Severity/Quality: moderate Radiation: no radiation Associated Symptoms: denies symptoms Exacerbated by: nothing Relieved By: nothing Allergies: Coded Allergies: No Known Allergies (Unverified , 11/20/19) Vital Signs First Vital Signs Date Time Temp Pulse Resp B/P (MAP) Pulse Ox O2 Delivery O2 Flow Rate FiO2 07/25/22 19:11 98.6 106 18 142/89 (106) 95 Room Air* 0 21 Last Vital Signs Date Time Temp Pulse Resp B/P (MAP) Pulse Ox O2 Delivery O2 Flow Rate FiO2 07/25/22 19:11 98.6 106 18 07/25/22 19:11 95 07/25/22 19:11 142/89 (106) Room Air* 0 21 Past Medical History Medical History: diabetes, other Surgical History: no surgical history Social History Alcohol Use: heavy Drug Use: none Constitutional: no symptoms reported EENTM: no symptoms reported Respiratory: no symptoms reported Cardiovascular: no symptoms reported Gastrointestinal: see HPI All Other Systems: Reviewed and Negative Physical Exam General Appearance: No Apparent Distress, WD/WN, Other (Alcohol of breath) Neck: Non-Tender, Full Range of Motion, Supple, Normal Inspection Respiratory: chest non-tender, lungs clear, normal breath sounds, no respiratory distress, no accessory muscle use Cardiovascular: Normal Peripheral Pulses, Regular Rate, Rhythm, No Edema, No Gallop, No JVD, No Murmur Gastrointestinal: Normal Bowel Sounds, No Organomegaly, No Pulsatile Mass, Tenderness (Epigastric region) Back: Normal Inspection, No CVA Tenderness, No Vertebral Tenderness Extremities: Normal Range of Motion, Non-Tender, Normal Inspection, No Pedal Edema, No Calf Tenderness, Normal Capillary Refill, Pelvis Stable 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 (07/25/22 19:09) Helicobacter Pylori (07/25/22 19:09) Urinalysis (07/25/22 19:09) EKG (07/25/22 19:09) Alcohol(Ml) (07/25/22 19:09) Ketorolac Tromethamine (Toradol) (07/25/22 19:09) Vital Signs Date Time Temp Pulse Resp B/P (MAP) Pulse Ox O2 Delivery O2 Flow Rate FiO2 07/25/22 19:11 98.6 106 18 07/25/22 19:11 98.6 106 18 95 07/25/22 19:11 98.6 106 18 142/89 (106) 95 Room Air* 0 21 Laboratory Tests Test 07/25/22 19:22 White Blood Count 8.9 10^3/uL (4.5-11.0) Red Blood Count 4.66 10^6/uL (4.50-5.90) Hemoglobin 14.5 g/dL (13.9-16.3) Hematocrit 41.4 % (37.0-53.0) Mean Corpuscular Volume 88.8 fL (78-100) Mean Corpuscular Hemoglobin 31.1 pg (26-34) Mean Corpuscular Hemoglobin Concent 35.0 g/dL (33-36.5) Red Cell Distribution Width 13.8 % (11.5-14.5) Platelet Count 263 10^3/uL (150-400) Mean Platelet Volume 9.1 fL (7.8-11.0) Neutrophils (%) (Auto) 46.8 % (41.0-85.0) Lymphocytes (%) (Auto) 43.4 % (24.0-44.0) Monocytes (%) (Auto) 6.2 % (5.0-12.0) Neutrophils # (Auto) 4.2 10^3/uL (1.8-7.7) Lymphocytes # (Auto) 3.85 10^3/uL1 (1.0-4.8) Monocytes # (Auto) 0.6 10^3/uL (0.3-0.8) Absolute Immature Granulocyte (auto 0.02 10^3 u/L (0-2) Absolute Eosinophils (auto) 0.3 10^3/uL (0.0-0.2) H Immature Granulocytes % 0.20 % (0.00-0.50) Eosinophils % 2.9 % (0.0-5.0) Basophils % 0.5 % (0.0-0.2) H Basophils # 0.0 10^3/uL (0.0-0.1) Sodium Level 133 mmol/L (132-145) Potassium Level 3.8 mmol/L (3.6-5.2) Chloride Level 97.0 mmol/L (96-109) Carbon Dioxide Level 17.1 mmol/L (20.0-32) L Anion Gap 22.7 Blood Urea Nitrogen 8 mg/dL (7-18) Creatinine 0.98 mg/dL (0.59-1.40) Estimated GFR () 102.0 (>/=60) Est GFR (CKD-EPI)(Non-Afr Brazilian) 84.3 (>/=60) BUN/Creatinine Ratio 8.0 (10.0-20.0) L Glucose Level 338 mg/dL (70-110) H Calcium Level 7.4 mg/dL (8.4-10.5) L Total Bilirubin 0.2 mg/dL (0.2-1.0) Aspartate Amino Transferase (AST) 18 U/L (0-35) Alanine Aminotransferase (ALT) 24 U/L (12-78) Alkaline Phosphatase 117 U/L (50-136) Total Protein 7.2 g/dL (6.4-8.2) Albumin 3.2 g/dL (3.4-5.0) L Globulin 4.0 Albumin/Globulin Ratio 0.800 Lipase 7 U/L (16-77) L Serum Alcohol 325 mg/dL (0-50) H Helicobacter pylori Screen POSITIVE (NEGATIVE) Progress Progress CBC normal CO2 17.1, glucose 338, calcium 7.4, rest of chemistries unremarkable. Lipase 7. Alcohol 325. H. pylori positive. Patient did not want to wait for all his labs to result. He received Toradol for pain control in the ambulance. He signed and left AGAINST MEDICAL ADVICE. He understands that leaving AGAINST MEDICAL ADVICE may result in worsening condition and . Even though patient has alcohol on board, he is fully awake,alert and oriented x3. He is capable to make his own decisions. EKG/XRAY/CT/US EKG: NSR EKG Comments: HR 100, sinus tachycardia ER DEPART Departure Time of Disposition: 20:28 Disposition: 07 LEFT AGAINST MEDICAL ADVICE Impression: Primary Impression: Abdominal pain Additional Impression: Alcoholism Condition: Against Medical Advice Referrals: PCP,UNKNOWN (PCP) PRIMARY CARE PROVIDER Duration or Time Spent with Pa: 30 min Problem Qualifiers Primary Impression: Abdominal pain Abdominal location: epigastric Qualified Codes: R10.13 - Epigastric pain TYSHAWN TEJEDA MD Jul 25, 2022 20:29
== END 2022-07-25 20:15 | disposition left against medical advice (07) ==
LOC: EDBD 18:53 → ER 18:53
DX: R10.9 Unspecified abdominal pain (principal); F10.20 Alcohol dependence, uncomplicated; E11.9 Type 2 diabetes mellitus without complications; Z87.19 Personal history of other diseases of the digestive system
CPT/HCPCS: 36415; 80053; 82077; 82948; 83690; 85025; 86677; 93005; 99284